=== PATIENT | female | born 1985 | race Caucasian/White ===

== ENCOUNTER → 2017-03-14 | Outpatient (CLI) | payer OTHER ==
[~2017-03-14] MED LIST: ACET30TAB PO; TYLE500T78 PO
--- NOTE | 2017-03-14 17:25 | REP ---
Digital diagnostic bilateral mammography with CAD and focused right breast sonography: History: 2-month history of right breast mass and inverted nipple. No comparison breast imaging. Mammographic findings: A skin marker is affixed to the skin at the site of the palpable lump. Routine views of the right breast are augmented by magnified focal spot compression views. Routine views of the left breast were obtained. The breast parenchyma is heterogeneously quite dense in a pattern which inhibits the sensitivity of mammography. No definite mass lesion is seen at the site of the palpable lump or elsewhere. The right nipple does appear to be inverted mammographically. No microcalcification or architectural distortion is seen. Sonographic findings: The right breast is scanned from 3 o'clock to 6 o'clock focusing on the palpable lump at 4 o'clock. At the palpable lump, there is an irregular hypoechoic spiculated appearing mass with some acoustic shadowing measuring approximately 3.7 x 2.5 x 3.6 cm just adjacent to the nipple. There are a few dilated ducts at the edge of the mass posterior to the nipple. Internal high resistance arterial flow is seen in the mass. At 5 o'clock, there is a 0.6 cm cyst 2.5 cm from the nipple and at 4 o'clock a 0.6 cm septated cyst is seen. Impression: BIRADS category 4 suspicious right breast imaging. Sonographic findings are suspicious for a 3.7 cm spiculated mass casting acoustic shadowing. This corresponds to the palpable lump. The mammographic findings include nipple retraction. Ultrasound-guided needle biopsy recommended. BI-RADS/ACR category 4 mammogram. Suspicious abnormality - biopsy should be considered. Usually requires biopsy. This mammogram was interpreted with the aid of an FDA-approved computer-aided detection system. The patient states she/he had a clinical breast exam in February 2017. The patient letter being requested is m#[id number] . Signed by Antione Sen MD 03/15/2017 07:40 A
== END ==
LOC: M RAD 13:23
PROVIDERS: ATTEND Obstetrics & Gynecology
DX: N63 Unspecified lump in breast (principal)
CPT/HCPCS: 76642; G0204

== ENCOUNTER → 2017-03-20 | Outpatient (REF) | payer OTHER | LOC: M LAB REF 17:22 | PROVIDERS: ATTEND Surgery | DX: C50.919 Malignant neoplasm of unspecified site of unspecified female breast (principal) ==

== ENCOUNTER 2017-03-27 19:18 | Emergency (ER) | payer OTHER ==
[~2017-03-27] VITALS: Ht 182.9 cm; Wt 86.3 kg
[2017-03-27] MEDS ORDERED: TYLE500T78 PO (19:42)
[2017-03-27] MEDS ORDERED: ACET30TAB PO (21:12)
[2017-03-27] MEDS ORDERED: ACETAMINOPH W/CODEINE #3 TAB UD PO ONE (21:15)
[2017-03-27 21:27] VITALS: BP 133/64
--- NOTE | 2017-03-27 21:27 | ED PDOC ---
Post-Departure Follow-Up PT PRESENTS TO THE ER TODAY AFTER BEING ADVISED FROM [facility] FOR ABNORMAL RESULTS ON HER MRI AND BREAST BX REPORTS. PT STATES HAS BEEN HAVING LEFT HIP PAIN FOR MONTHS, AND A PAINFUL BREAST LUMP FOR THE PAST 2-3 MONTHS. PT HAD AN MRI ON HER LEFT HIP AND THERE WERE "SPOTS" THAT SHE WAS TOLD COULD BE INFECTION OR TUMORS, BUT WAS NOT GIVEN A DX. SHE HAD A BREAST BX PERFORMED BY DR. RAMIREZ RECENTLY AND HAS AN APPT WITH HIM TOMORROW TO DISCUSS THESE RESULTS. THIS COVER STITCH MACHINE OPERATOR OBTAINED A FAX FROM [facility] WITH THIS PT'S RESULTS FROM ALL HER TESTING. THE BREAST BX WAS POSITIVE, "ESTROGEN AND PROGESTERONE RECEPTOR POSITIVE AND HER2 NEGATIVE." THE MRI WAS ALSO POSITIVE FOR "WIDESPREAD OSSEOUS MARROW REPLACEMENT THROUGHOUT THE VISUALIZED LUMBOSACRAL SPINE, PELVIS AND BILATERAL HIPS, CENTERED ABOUT THE LEFT ILIUM. DIFFERENTIAL REMAINS DEL CASTILLO SARCOMA VS METASTATIC DISEASE." THESE RESULTS WERE ALL DISCUSSED WITH THIS PT AND HER AT THE ER VISIT, IT WAS NOT DISCUSSED/EXPLAINED TO THEM BY HER LT AT [facility]. ADVISED WE CAN PROVIDE MEDICATIONS FOR PAIN AND SHE ALREADY HAS FOLLOW UP WITH DR. RAMIREZ TOMORROW AT 10:30AM TOMORROW AND THIS WILL LIKELY BE THE BEST COURSE OF ACTION AT THIS TIME. A REFERRAL FOR ONCOLOGY IS ALREADY PENDING WITH [facility] AND LT FRY STATED TO MATTHEW GARCIA RN THAT HE WILL PERSONALLY CALL THIS PT IN THE MORNING TO FOLLOW UP ON THIS REFERRAL. THIS INFORMATION WAS GIVEN TO THE PT AND HER WELL. ALL IN AGREEMENT OF TX PLAN AT THIS TIME. SHAHIDA PEREZ PA-C Mar 27, 2017 21:27
== END 2017-03-27 21:28 | disposition home or self-care (01) ==
LOC: M ED 19:18
DX: M25.552 Pain in left hip (principal)

== ENCOUNTER → 2017-03-29 | Outpatient (CLI) | payer OTHER ==
[~2017-03-29] MED LIST changes: +GASTROGRAFIN SOLUTION 30ML (Q9963) As Ordered ONE; +ISOVUE-370 76% 100ML VIAL (Q9967) As Ordered ONE
--- NOTE | 2017-03-29 18:11 | REP ---
CT of the chest with IV contrast: The the patient has a known right breast mass best identified on prior breast ultrasound and poorly visible by prior mammography. The right breast mass is poorly visualized by CT. There are no lung masses or nodules. There are no infiltrates or effusions. There is no mediastinal or hilar adenopathy. There are a few borderline enlarged right axillary nodes measuring up to 8 mm short axis. There are no enlarged left axillary nodes. The thoracic aorta is unremarkable. Cardiac size is normal. There is no pericardial effusion. There are multiple lytic lesions throughout the thoracic vertebral bodies, sternum, right humeral head and questionably in the head of the left clavicle. Impression: There are multiple lytic skeletal lesions. There are no pulmonary nodules, masses, infiltrates or effusions. There are a few borderline enlarged right axillary nodes. The patients known right breast mass is poorly visualized by CT and is best visualized by ultrasound. There is no mediastinal or hilar adenopathy. Signed by Brandon Mayes MD 03/29/2017 06:03 P
--- NOTE | 2017-03-29 18:17 | REP ---
CT of the abdomen pelvis without and with IV contrast. And with bowel contrast. Study is performed. Contiguous with the chest CT this same date. Utilizing the same IV contrast bolus. The hepatic parenchyma is homogeneous on all phases of the study. There are no hepatic metastases. The gallbladder, pancreas and spleen are unremarkable. The adrenals, kidneys and abdominal aorta are unremarkable. There is no mesenteric or retroperitoneal adenopathy. No bowel distension. Pelvis: There is no ascites or adenopathy. The uterus and adnexa are unremarkable. The pelvic bowel loops are unremarkable. There are numerous lytic lesions in the lumbar spine, sacrum, iliac wings, ischii and left femoral head and neck. Impression: There are multiple lytic skeletal metastases. There is no adenopathy or ascites. No solid organ metastases. Specifically no hepatic metastases are identified. Signed by Brandon Mayes MD 03/29/2017 06:09 P
== END ==
LOC: M RAD 15:50
PROVIDERS: ATTEND Surgery
DX: C50.911 Malignant neoplasm of unspecified site of right female breast (principal)
CPT/HCPCS: 71260; 74178; Q9963; Q9967

== ENCOUNTER → 2017-04-02 | Outpatient (REF) | payer OTHER ==
[~2017-04-02] MED LIST changes: -GASTROGRAFIN SOLUTION 30ML (Q9963) As Ordered ONE; -ISOVUE-370 76% 100ML VIAL (Q9967) As Ordered ONE
== END ==
LOC: M LAB REF 17:05
PROVIDERS: ATTEND Internal Medicine Medical Oncology
DX: C50.919 Malignant neoplasm of unspecified site of unspecified female breast (principal)

== ENCOUNTER → 2017-04-04 | Outpatient (CLI) | payer OTHER ==
--- NOTE | 2017-04-05 09:50 | REP ---
Whole body PET CT scan: Studies performed for evaluation of breast carcinoma. Comparison are the CT of the chest abdomen and pelvis dated 03/29/2017. Whole-body scanning is performed from the skull base to the upper thighs. Neck and supraclavicular areas: There is hypermetabolic uptake in the optic nerves bilaterally with the standard uptake value on the left measuring 13.6 and on the right 12.9. There is uptake in the posterior elements of the C2 vertebra on the right with the standard uptake value measuring 8.6. There is artifactual uptake in the tonsillar tissues. Chest: There is focal uptake in the distal right clavicle standard uptake value measuring 6.4. There is focal uptake in the scapula bilaterally. On the right. The standard uptake value is 7.4 and on the left 7.4. There is uptake in the T1 vertebral body with a standard uptake value of 1.8. There is a focus of uptake in the sternomanubrial junction with the standard uptake value of 6.8. The there is uptake in the head of the left clavicle with the standard uptake value of 11.5. There is uptake in right axillary nodes with a maximal standard uptake value measuring 9.5. There is uptake anteriorly in the right second rib with the standard uptake value of 6.5. There is uptake in the patient's known right breast mass with the standard uptake value of 10.6. There is uptake in the mid sternum with a standard uptake value of 10.9. There is uptake in several thoracic vertebral bodies with standard uptake value of 8.6. There is uptake in the costovertebral junction of the left sixth rib with the standard uptake value measuring 6.4. No definite lung foci are identified. No definite mediastinal foci are identified. Abdomen, pelvis and upper thighs: There are multiple uptake foci in the lumbar vertebral bodies with a maximal standard uptake value of 14.2. There is uptake throughout the pelvis including the iliac wings, acetabuli, pubic symphysis, ischii and sacrum. Impression: Numerous skeletal metastases as described. No soft tissue metastases except for the optic nerves bilaterally. Specifically no lung, hepatic or adrenal metastases are identified. The study is performed with the 10 mCi of F 18 FDG. Signed by Brandon Mayes MD 04/05/2017 09:41 A
== END ==
LOC: M PLARAD 11:25
PROVIDERS: ATTEND Internal Medicine Medical Oncology
DX: C50.919 Malignant neoplasm of unspecified site of unspecified female breast (principal)
CPT/HCPCS: 78815; A9552

== ENCOUNTER → 2017-04-10 | Outpatient (CLI) | payer OTHER ==
--- NOTE | 2017-04-10 17:11 | REP ---
MRI LUMBAR SPINE WITHOUT AND WITH CONTRAST: HISTORY: Breast carcinoma. CONTRAST: ProHance 16 mL. Decreased signal intensity on T2-weighted images is present in the L4-5 and L5-S1 intervertebral discs. The discs are decreased in height. These findings are consistent with disc degeneration. There is no disc bulge or herniation at the L1-2 through L3-4 levels. The nerves exit the neural foramina without compression. A diffuse disc bulge and small central disc extrusion are present at the L4-5 level. There is inferior migration of disc material. There is minimal compression of the thecal sac. There is hypertrophy of the posterior articulating facets. The L4 nerves exit the neural foramina without compression. A diffuse disc bulge and small left paracentral and intraforaminal disc protrusion are present at the L5-S1 level. The left L5 and S1 nerves are conjoined. There is minimal compression of the thecal sac and left L5 and S1 nerves as they exit the thecal sac. There is compression of the left L5 nerve in the neural foramen. The right L5 nerves exit the neural foramina without compression. The conus medullaris is normal in appearance terminating at the level of the L1-2 intervertebral disc. Multiple well-defined areas of increased signal intensity on T2-weighted images are present in the visualized thoracic and lumbar vertebral bodies. Additional areas of increased signal intensity are present in the neural arch, sacrum, and iliac bones. There is moderate homogenous enhancement with contrast. These are consistent with metastasis. There is no paravertebral or epidural extension. The vertebral bodies are normal in height. IMPRESSION: 1. Diffuse disc bulge and small central disc extrusion at the L4-5 level with minimal thecal sac compression. 2. Diffuse disc bulge and small left paracentral and intraforaminal disc protrusion at the L5-S1 level with minimal compression of the thecal sac and left L5 and S1 nerves as they exit the thecal sac. There is compression of the left L5 nerve in the neural foramina. 3. There are multiple metastatic lesions in the vertebral bodies, neural arch, sacrum and iliac bones. There is no paravertebral or epidural extension. Signed by Jamal Rust MD 04/11/2017 08:42 A
--- NOTE | 2017-04-10 17:33 | REP ---
WHOLE BODY BONE SCAN: Following the intravenous administration of 21.3 millicuries of technetium 99M MDP, patients whole body was imaged in the anterior and posterior projections. Additional oblique images of the thoracic and pelvic regions are performed as well as lateral views of the calvarium. Intense focal increased uptake is seen in the anterior right second rib and anterolateral right 8th rib. Correlating with the CT of the chest 03/29/2017, these appear to represent rib fractures. They may represent pathologic fractures. There is arthritic uptake at the sternoclavicular joints. Heterogenous increased uptake is seen in the proximal left femur and throughout both iliac bones compatible with metastatic disease as seen on recent CT scans 03/29/2017. Mild increased uptake in the right sacrum is also compatible with metastatic disease. No other definite abnormal uptake is seen. Renal and bladder activity are seen. IMPRESSION: Focal increase uptake in the anterior right second and 8th ribs. There are rib fractures on the recent CT scan which may be pathologic. Increased uptake in the proximal left femur, left ischium, bilateral iliac bones and right sacrum compatible with areas of metastatic uptake. There is no uptake in the multiple lytic lesions throughout the spine. Signed by Brandon Tomlin MD 04/11/2017 05:01 P
--- NOTE | 2017-04-11 08:40 | REP ---
MRI BRAIN WITHOUT AND WITH CONTRAST: HISTORY: Breast carcinoma. CONTRAST: ProHance 16 mL. There are no areas of abnormal signal intensity in the brain. There is no intraparenchymal hemorrhage, infarct, mass or midline shift. There is no abnormal enhancement. The ventricular system is normal in appearance. There is no extracerebral collection. The sinuses are clear. IMPRESSION: There is no intracranial lesion. Signed by Jamal Rust MD 04/11/2017 08:41 A
== END ==
LOC: M RAD 10:37
PROVIDERS: ATTEND Internal Medicine Medical Oncology
DX: C50.919 Malignant neoplasm of unspecified site of unspecified female breast (principal)
CPT/HCPCS: 70553; 72158; 78306; A9503; A9576

== ENCOUNTER → 2017-05-25 | Outpatient (CLI) | payer OTHER ==
--- NOTE | 2017-05-29 06:49 | RADONC ---
RADIATION ONCOLOGY CONSULTATION NOTE DATE: 05/25/2017 CHART NUMBER: [id number] DIAGNOSIS: Right breast cancer. STAGE: IV, widely metastatic ECOG PERFORMANCE STATUS: 1 CONSULTATION NOTE: Ms. 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 HISTORY OF PRESENT ILLNESS: The patient was in her usual state of health until August of 2016 when she began having difficulty walking and increased pain over her left leg. It became increasingly weak and she had trouble lifting her leg. In October the patient reports having x-rays which were reported to be normal. In December of 2016 she began developing some right right-sided breast pain as well as left hip pain. By February of this year the patient found on plain x-rays to show multiple skeletal lesions. An MRI was done on 02/28/2017 which showed diffuse involvement of her lumbar spine, sacrum. pelvis and bilateral hips. On 03/20/2017, the patient underwent a right breast needle biopsy and pathology revealed a poorly differentiated infiltrating ductal carcinoma which was estrogen receptor and progesterone receptor positive and HER2 negative. A PET scan was done on 04/10/2017 and showed marked increased uptake in the right breast as well as in multiple bony sites. The patient's lungs and liver appeared to be free of malignancy. On 04/19/2017 the patient underwent a total hip arthroplasty with Dr. Jae Gracia. Since completion of surgery, she has healed nicely and is now presenting for consideration of postoperative radiation therapy to her left femur as well as for consideration of palliative radiation therapy to other bony sites. The patient has begun hormonal treatment with Dr. Nguyen. PAST MEDICAL HISTORY: The patient's past medical history is noncontributory. She has been in excellent health. ALLERGIES: No known drug allergies. SOCIAL HISTORY: The patient does not smoke cigarettes. She drinks alcohol socially. FAMILY HISTORY: The patient's family history is positive for an aunt with thyroid and endometrial cancers. She had a grandfather with melanoma and a great-grandmother with lung cancer. REVIEW OF SYSTEMS: The patient's review of systems is positive for physical limitations secondary to weakness and bone pain. It is otherwise noncontributory. She denies nausea, vomiting, fevers, chills, night sweats, diplopia, headaches, anxiety or depression, anorexia, weight loss, visual disturbances, chest pain, urinary or bowel difficulties, bone pain, or neurological problems. PHYSICAL EXAMINATION: The patient is a well-developed, well-nourished white female in no acute distress. HEENT exam is normocephalic, atraumatic. Extraocular movements are intact. There is no palpable cervical, supraclavicular, infraclavicular, axillary, or inguinal lymphadenopathy present. Lungs are clear to auscultation and percussion. Heart has a regular rate and rhythm. Abdomen is benign with no hepatosplenomegaly, masses, or tenderness. Skeletal examination reveals no tenderness to pressure or percussion of the bony skeleton. Neurologic exam is grossly intact, as is the remainder of the physical examination. Examination of the patient's right thigh reveals a well-healed surgical scar present consistent with her history. There is no clubbing, cyanosis or edema in the extremities. IMAGING: I have personally reviewed the patient's PET scan done on April 04, 2017 which shows a significant amount of uptake throughout the pelvic and back bones as well as other bony sites. There is also significant uptake as noted above in the patient's right breast. ASSESSMENT: Clearly, the patient is a candidate for palliative radiation therapy and I have so informed her. I have discussed with the patient in detail the potential benefits as well as possible acute and chronic sequelae of external beam radiation therapy. We discussed the logistics of treatment planning, simulation, and subsequent fractionated daily radiation treatments. I have scheduled the patient for the next available simulation slot and radiation treatments will begin subsequently. Since the patient has begun her hormonal therapy, she reports that she feels as though her breast mass has decreased in size significantly. She is quite happy with this response. We have discussed the treatment of her weightbearing bones as a priority in this case. Thank you for allowing us to participate in the care of this very pleasant woman. If I could be of any further assistance or provide you with any information, please free to contact me at anytime. cc: MD Theo Galvan [facility] Beti Nguyen MD
== END ==
LOC: M ONCR 10:06
PROVIDERS: ATTEND Radiology Radiation Oncology
DX: C79.51 Secondary malignant neoplasm of bone (principal); C50.911 Malignant neoplasm of unspecified site of right female breast

== ENCOUNTER 2017-06-05 10:33 | Outpatient (RCR) | payer OTHER ==
--- NOTE | 2017-06-06 09:06 | RADONC ---
RADIATION ONCOLOGY SIMULATION NOTE DATE: 06/05/2017 CHART NUMBER: [id number]. SIMULATION NOTE: Ms. Whitmore was taken to the CT scan for CT simulation of her left femur field. CT was accomplished without difficulty or discomfort. Radiation treatment planning is underway and radiation treatments will begin subsequently. An immobilization device was created and will be used throughout the course of treatment. I was physically present throughout the course of CT simulation.
== END 2017-06-14 ==
LOC: M ONCR 10:33
PROVIDERS: ATTEND Radiology Radiation Oncology
DX: C50.111 Malignant neoplasm of central portion of right female breast (principal); C79.51 Secondary malignant neoplasm of bone

== ENCOUNTER → 2017-06-05 | Outpatient (CLI) | payer OTHER | LOC: M RAD 10:25 | PROVIDERS: ATTEND Radiology Radiation Oncology | DX: C50.911 Malignant neoplasm of unspecified site of right female breast (principal); C79.51 Secondary malignant neoplasm of bone ==

== ENCOUNTER → 2017-06-06 | Outpatient (REF) | payer OTHER | LOC: M LAB REF 15:33 | PROVIDERS: ATTEND Internal Medicine Medical Oncology | DX: C50.919 Malignant neoplasm of unspecified site of unspecified female breast (principal) ==

== ENCOUNTER 2017-06-15 14:19 | Outpatient (RCR) | payer OTHER | END 2017-07-15 | LOC: M ONCR 14:19 | DX: C50.111 Malignant neoplasm of central portion of right female breast (principal); C79.51 Secondary malignant neoplasm of bone (principal) | CPT/HCPCS: 77336 ==

== ENCOUNTER → 2017-07-04 | Outpatient (REF) | payer OTHER ==
[2017-07-04 19:29] LABS: ESTRADIOL < 19.0 PG/ML; LUTEINIZING HORMONE 0.1 mIU/mL
[2017-07-04 19:30] LABS: FOLLICLE STIMULATING HORMONE 0.7 mIU/mL
== END ==
LOC: M LAB REF 18:23
PROVIDERS: ATTEND Internal Medicine Medical Oncology
DX: C50.919 Malignant neoplasm of unspecified site of unspecified female breast (principal)

== ENCOUNTER → 2017-08-02 | Outpatient (REF) | payer OTHER ==
[2017-08-04 00:07] LABS: CA 27.29 162.9 U/mL (0.0-38.6)
== END ==
LOC: M LAB REF 13:31
DX: C50.919 Malignant neoplasm of unspecified site of unspecified female breast (principal)
CPT/HCPCS: 86300

== ENCOUNTER → 2017-08-08 | Outpatient (CLI) | payer OTHER | LOC: M ONCR 11:53 | DX: C50.111 Malignant neoplasm of central portion of right female breast (principal); C79.51 Secondary malignant neoplasm of bone | CPT/HCPCS: G0463 ==

== ENCOUNTER → 2017-08-30 | Outpatient (REF) | payer OTHER | LOC: M LAB REF 13:12 | DX: C50.919 Malignant neoplasm of unspecified site of unspecified female breast (principal) | CPT/HCPCS: 86300 ==

== ENCOUNTER → 2017-09-27 | Outpatient (REF) | payer OTHER ==
[2017-09-29 00:06] LABS: CA 27.29 103.1 U/mL (0.0-38.6)
== END ==
LOC: M LAB REF 13:45
DX: C50.919 Malignant neoplasm of unspecified site of unspecified female breast (principal)

== ENCOUNTER → 2017-10-25 | Outpatient (REF) | payer OTHER | LOC: M LAB REF 17:27 | DX: C50.919 Malignant neoplasm of unspecified site of unspecified female breast (principal) ==

== ENCOUNTER → 2017-11-22 | Outpatient (REF) | payer OTHER ==
[2017-11-24 00:06] LABS: CA 27.29 69.2 U/mL (0.0-38.6)
== END ==
LOC: M LAB REF 13:15
DX: C50.411 Malignant neoplasm of upper-outer quadrant of right female breast (principal); C79.51 Secondary malignant neoplasm of bone
CPT/HCPCS: 86300

== ENCOUNTER → 2017-12-24 | Outpatient (REF) | payer OTHER ==
[2017-12-26 00:06] LABS: CA 27.29 53.3 U/mL (0.0-38.6)
== END ==
LOC: M LAB REF 13:34
DX: C50.411 Malignant neoplasm of upper-outer quadrant of right female breast (principal); Z17.0 Estrogen receptor positive status [ER+]; C79.51 Secondary malignant neoplasm of bone
CPT/HCPCS: 86300

== ENCOUNTER → 2018-01-21 | Outpatient (REF) | payer OTHER ==
[2018-01-23 00:08] LABS: CA 27.29 43.2 U/mL (0.0-38.6)
== END ==
LOC: M LAB REF 13:45
DX: C50.411 Malignant neoplasm of upper-outer quadrant of right female breast (principal); Z17.0 Estrogen receptor positive status [ER+]; C79.51 Secondary malignant neoplasm of bone

== ENCOUNTER → 2018-02-19 | Outpatient (REF) | payer OTHER ==
[2018-02-20 08:06] LABS: CA 27.29 44.4 U/mL (0.0-38.6)
== END ==
LOC: M LAB REF 13:09
DX: C50.411 Malignant neoplasm of upper-outer quadrant of right female breast (principal); Z17.0 Estrogen receptor positive status [ER+]

== ENCOUNTER → 2018-05-21 | Outpatient (CLI) | payer OTHER | LOC: M PLARAD 15:28 | DX: C50.919 Malignant neoplasm of unspecified site of unspecified female breast (principal); C79.51 Secondary malignant neoplasm of bone | CPT/HCPCS: 78815 ==

== ENCOUNTER → 2018-11-26 | Outpatient (CLI) | payer OTHER ==
[~2018-11-26] MED LIST changes: +ACET-716 PO; -ACET30TAB PO; +CALC1TAB26 PO; +KISQ200T OR; +KISQ200T PO; +LETR2.5T2 OR; +MULTCAP PO; +TAMO20TA8 PO
--- NOTE | 2018-11-27 09:49 | REP ---
PET/CT: History: Restaging breast carcinoma. The patient undergoing endocrine targeted chemotherapy. Comparisons: Comparison PET/CT studies are reviewed from May 21, 2018 and April 04, 2017. TECHNIQUE: 50 minutes following the intravenous injection of a 9.66 mCi dose of F-18 FDG, three-dimensional PET scintigraphy is acquired from the skull base to the proximal thighs. Triplanar noncontrast CT scanning is acquired through the same anatomic range for attenuation correction, and image registration with scan parameters optimized to minimize radiation exposure to the patient. PET scintigraphy and CT datasets were fused and displayed on a workstation with multiplanar and projection display capability. PET/CT Findings: There is a residual focus of hypermetabolic uptake in the right breast. Maximum standard uptake value is 6.30, previously 4.60 on May 21, 2018. The previous study showed a focus of hypermetabolic uptake in the T4 vertebral body. This persists. Today maximum standard uptake value is 5.29. Previously 4.67. There is a new focus of hypermetabolic uptake in the right humeral head, maximum SUV 4.36. There are multiple foci of hypermetabolic uptake in the pelvis involving bilateral iliac bones and the left sacrum. Maximum standard uptake value in these metastatic sites range from 3.22-6.05. Several of these are new when compared with the prior study. SUVs are somewhat higher as well. Impression: There are several new foci of hypermetabolic skeletal uptake. Residual uptake is seen in the right breast. Electronically Signed by Antione Sen MD 11/27/2018 01:40 P
== END ==
LOC: M PLARAD 13:35
PROVIDERS: ATTEND Internal Medicine Medical Oncology
DX: C50.411 Malignant neoplasm of upper-outer quadrant of right female breast (principal); Z92.21 Personal history of antineoplastic chemotherapy
CPT/HCPCS: 78815; A9552

== ENCOUNTER → 2019-04-03 | Outpatient (CLI) | payer OTHER ==
[~2019-04-03] MED LIST changes: +ACET-897 PO; +ACET500T15 PO; +AFIN10TA PO; +ASPI-1 PO; +CALC-190 PO; +DEXA0.5E2 PO; +EXEM25TA PO; +LEUP7.5KIT IM; +RIBO1TAB2 PO; +TAMO10TA PO; +TH DTAB2 PO; +XGEVINJ SC; +[UNRECOGNIZED DRUG - CODE] PO
--- NOTE | 2019-04-07 07:18 | RADONC ---
RADIATION ONCOLOGY CONSULTATION NOTE DATE: 04/03/2019 CHART #: [id number] DIAGNOSIS: Right breast cancer. STAGE: IV, metastatic. ECOG PERFORMANCE STATUS: 0. CONSULTATION NOTE: Ms. Whitmore is a very pleasant 34-year-old white female with the diagnosis of metastatic poorly differentiated invasive ductal carcinoma of the right breast who is well-known to our department who has been treated previously to her left hip and femur for metastatic disease. The patient was seen by us again on 12/24/2018 for discussion of possible palliative radiation therapy to her right humerus for a bone metastasis seen on PET scan done 11/26/2018. At that time, the patient reported having very minimal discomfort and the lesion was quite small on PET scan. In light of this, she decided to wait and see how she would do without radiation. Indeed, she had other bony metastatic sites with larger lesions. The patient reports that over the past several months she has had very minimal discomfort. She has been avoiding push-ups and lifting heavy weights with that arm, but in general is not complaining of much pain. REVIEW OF SYSTEMS: Positive for some occasional tenderness in the right humeral area as well as in the left sacroiliac region. Her review of systems is otherwise noncontributory. Denies nausea, vomiting, fevers, chills, night sweats, diplopia, headaches, anxiety or depression, anorexia, weight loss, visual disturbances, chest pain, urinary or bowel difficulties, bone pain, or neurological problems. PHYSICAL EXAMINATION: The patient is a well-developed, well-nourished female in no acute distress. HEENT exam is normocephalic, atraumatic. Extraocular movements are intact. There is no palpable cervical, supraclavicular, infraclavicular, axillary, or inguinal lymphadenopathy present. Lungs are clear to auscultation and percussion. Heart has a regular rate and rhythm. Abdomen is benign with no hepatosplenomegaly, masses, or tenderness. Skeletal examination reveals no tenderness to pressure or percussion of the bony skeleton. Extremities reveal no clubbing, cyanosis, or edema. Neurologic exam is grossly intact, as is the remainder of the physical examination. Once again, I had a very lengthy discussion with this patient. At this time, she does not appear to have any progression of any discomfort when compared to her previous visit. The patient reports that she will be moving to [place] and is being set up for followup and management at an [facility] satellite in [place] in June. The patient is being managed and followed closely for systemic treatment with her medical oncologist, Dr. Beti Nguyen, who she is scheduled to see right after this appointment. The last scan done was her PET scan of 11/26/2018. Because of this, I do not know if this area has progressed or regressed. At this time, I see no difference in recommendations. I am willing to treat this area if she desires. However, I would require a new scan to make sure we are not missing any nearby spots and that we fully incorporate the present level of disease. In light of the fact that she appears to be very well managed by her medical oncologist, I have not actually recommended that we treat this at this time. Indeed if she is having all future treatments at [facility] in [place], it probably would be better to have treatment done there. She has only had one course of radiation and that was to her left hip and femur. By having all future courses of radiation in the same center, there would be less likelihood of any overlap or difficulties with subsequent treatment [place]. Since the patient is continuing her close followup with Dr. Nguyen, I have not set her up for any followup at this time in my office. I have instructed her to have her new center contact us and we would be glad to send all information and radiation records to them in [place]. Thank you for allowing us to participate in the care of this very pleasant woman. If I could be of any further assistance, please free to contact me at anytime. As always warm regards. cc: Jae Gracia MD [facility] Beti Nguyen MD
== END ==
LOC: M ONCR 12:57
PROVIDERS: ATTEND Radiology Radiation Oncology
DX: C50.111 Malignant neoplasm of central portion of right female breast (principal); C79.51 Secondary malignant neoplasm of bone

== ENCOUNTER → 2019-04-29 | Outpatient (CLI) | payer OTHER ==
--- NOTE | 2019-04-30 07:11 | REP ---
PET/CT: HISTORY: Restaging breast carcinoma. COMPARISONS: Comparison PET/CT study November 26, 2018. TECHNIQUE: 48 minutes following the intravenous injection of a 8.46 mCi dose of F-18 FDG, three-dimensional PET scintigraphy is acquired from the skull base to the proximal thighs. Triplanar noncontrast CT scanning is acquired through the same anatomic range for attenuation correction, and image registration with scan parameters optimized to minimize radiation exposure to the patient. PET scintigraphy and CT datasets were fused and displayed on a workstation with multiplanar and projection display capability. PET/CT FINDINGS: There is a hypermetabolic focus again noted in the medial aspect of the right breast with maximum standard uptake value 8.06. There is a new focus of hypermetabolic uptake in the left axillary subcutaneous fat over this may be injection artifact or dermal or subdermal inflammation. Maximum standard uptake value is 7.46. There is multifocal skeletal metastatic disease again noted. The previously noted focus of hypermetabolic uptake in the humeral head on the right is again seen with maximum standard uptake value 5.27. The previously noted T4 metastatic lesion shows maximum standard uptake value 10.11. This was previously 5.29. Multiple bilateral pelvic and sacral hypermetabolic lesions are seen with maximum standard uptake value ranging up to 11.31. These lesions show increased uptake. Several of the pelvic lesions appear larger. There is at least one new focus of right pelvic skeletal hypermetabolic uptake in the posterior aspect of the superior pubic ramus on the right. No new intra-abdominal or pulmonary parenchymal hypermetabolic uptake is seen. IMPRESSION: There is evidence of progressive skeletal metastatic hypermetabolic uptake. Electronically Signed by Antione Sen MD 04/30/2019 07:47 A
== END ==
LOC: M PLARAD 10:30
PROVIDERS: ATTEND Internal Medicine Medical Oncology
DX: C50.411 Malignant neoplasm of upper-outer quadrant of right female breast (principal)